=== PATIENT | female | born 2005 | race Caucasian/White ===

== ENCOUNTER 2023-04-28 20:15 | Inpatient (IN) | payer OTHER ==
[2023-04-28] MEDS ORDERED: NIFEdipine 10 MG CAPSULE (FP) ONE (20:52)
[2023-04-28] MEDS ORDERED: ELECTROLYTE-148 SOLN 1,000 ML IV SCH (21:15)
[2023-04-28 21:24] VITALS: BP 116/70; RESP 21
[2023-04-28] MEDS ORDERED: LACTATED RINGERS SOLUTION 1,000 ML/1,000 ML INFUS.BAG IV SCH (21:30)
[2023-04-28] MEDS ORDERED: BETAMET ACET/BETAMET NA PH 30 MG/5 ML VIAL IM ONE (21:43)
[2023-04-28] MEDS ORDERED: MAGNESIUM SULFATE 20GM/500ML - 20 GM/500 ML INFUS.BAG IVPB SCH (21:45)
[2023-04-28] MEDS ORDERED: MAGNESIUM 4GM/H20 - 4 GM/100 ML IVPB IVPB SCH (21:45)
[2023-04-28 21:48] LABS: HEMATOCRIT 29.6 % (32.4-45.2); HEMOGLOBIN 9.5 GM/dL (10.7-15.3); MCH 28.4 pg (25.7-33.7); MCHC 32.1 g/dl (32.0-36.0); MEAN CELL VOLUME 88.5 fl (80-96); PLATELET COUNT 181 10^3/uL (134-434); RBC 3.34 M/mm3 (3.60-5.2); RDW 15.3 % (11.6-15.6); WHITE BLOOD COUNT 19.3 K/mm3 (4.0-10.0)
[2023-04-28 21:51] LABS: EPI CELLS 18 /uL (0-25.1); HYALINE CASTS 0 /uL (0-3.1); URINE APPEARANCE CLEAR; URINE BACTERIA 2876 /uL (0-1359); URINE BILIRUBIN NEGATIVE (NEGATIVE); URINE COLOR YELLOW; URINE GLUCOSE (UA) TRACE (NEGATIVE); URINE KETONE NEGATIVE (NEGATIVE); URINE LEUK ESTERASE 2+ (NEGATIVE); URINE NITRITE NEGATIVE (NEGATIVE); URINE PROTEIN NEGATIVE (NEGATIVE); URINE RBC 6 /uL (0-23.9); URINE WBC 192 /uL (0-25.8)
[2023-04-28] MEDS ORDERED: ACETAMINOPHEN INJECTION 100 ML IVPB ONE (21:54)
[2023-04-28 21:55] LABS: ADD RBC MORPHOLOGY YES
[2023-04-28] MEDS ORDERED: NIFEdipine 10 MG CAPSULE (FP) PO SCH (22:00)
[2023-04-28] MEDS ORDERED: ACETAMINOPHEN 1000 MG/100 ML BAG IVPB ONE (22:00)
[2023-04-28] MEDS ORDERED: AZITHROMYCIN IVPB 500 MG/250 ML BAG IVPB ONE ×2 (22:07→22:51)
[2023-04-28] MEDS ORDERED: AMPICILLIN - 2 GM in SODIUM CHLORIDE 100 ML IVPB ONE (22:07)
[2023-04-28] MEDS ORDERED: AMPICILLIN SODIUM 2 GM VIAL ONE (22:12)
[2023-04-28 22:21] LABS: INR 1.04 (0.83-1.09); PROTHROMBIN TIME (PATIENT) 12.1 SEC (9.7-13.0)
[2023-04-28 22:43] LABS: POTASSIUM 3.6 mmol/L (3.5-5.1)
[2023-04-28 22:45] LABS: ALBUMIN 2.6 g/dl (3.4-5.0); CALCIUM 8.4 mg/dL (8.5-10.1)
[2023-04-28 22:46] LABS: BLOOD UREA NITROGEN 8.2 mg/dL (7-18)
[2023-04-28 22:49] LABS: CREATININE 0.5 mg/dL (0.55-1.3)
[2023-04-28 22:50] LABS: BILIRUBIN,TOTAL 0.4 mg/dL (0.2-1); TOT PROT 6.4 g/dl (6.4-8.2)
[2023-04-28 23:13] VITALS: PULSE 122; TEMP 100.3; BMI 27.5
[2023-04-28 23:14] LABS: ANISOCYTOSIS 2+; MACROCYTOSIS 0; OVALOCYTE 2+
[2023-04-28 23:52] LABS: HIV INTERPRETATION NEGATIVE (NEGATIVE)
[2023-04-29 11:00] LABS: POC NITRAZINE POS
== END 2023-04-28 23:00 | disposition short-term general hospital (02) | DRG 833 ==
LOC: JDEL 20:15 → JLDR 21:40
PROVIDERS: ADMIT Obstetrics & Gynecology; ATTEND Obstetrics & Gynecology
DX: O60.02 Preterm labor without delivery, second trimester (principal); O30.002 Twin pregnancy, unspecified number of placenta and unspecified number of amniotic sacs, second trimester; O42.90 Premature rupture of membranes, unspecified as to length of time between rupture and onset of labor, unspecified weeks of gestation; R50.9 Fever, unspecified; Z3A.25 25 weeks gestation of pregnancy
CPT/HCPCS: 36415; 59025; 76810-TC; 76817-TC; 80053; 81003; 83986-QW; 85025; 85610; 85730; 86780; 86850; 86900; 86901; 87086; 87389